=== PATIENT | female | born 1995 | race Caucasian/White ===

== ENCOUNTER 2016-09-15 22:35 | Emergency (ER) | payer BC ==
[~2016-09-15] VITALS: Ht 167.6 cm; Wt 77.7 kg
[~2016-09-15 22:35] MED LIST: BACTRIM DS 8001 TAB PO; PERCOCET 325 MG1 TA2 PO; ULTRAM 50MG TAB50 MG PO; VOLTAREN SR25 MG/TAB PO; ZYRTEC 10MG10 MG PO
[2016-09-15 22:49] VITALS: TEMP 98.4
[2016-09-15] MEDS ORDERED: PRENATAL1 TA7 PO (22:54)
[2016-09-16] MEDS ORDERED: UNISOM25 MG PO (00:06)
[2016-09-16] MEDS ORDERED: VITAMIN B-625 MG PO (00:06)
[2016-09-16] MEDS ORDERED: ZOFRAN8 MG PO (00:07)
[2016-09-16 00:17] VITALS: BP 114/63; PULSE 80
== END 2016-09-16 00:20 | disposition home or self-care (01) ==
LOC: COL.ER 22:35
DX: O21.9 Vomiting of pregnancy, unspecified (principal); Z3A.08 8 weeks gestation of pregnancy

== ENCOUNTER 2017-03-15 13:09 | Outpatient (CLI) | payer BC, MEDICAID ==
[~2017-03-15] VITALS: Ht 167.6 cm; Wt 84.8 kg
[~2017-03-15 13:09] MED LIST changes: +PRENATAL1 TA7 PO; +UNISOM25 MG PO; +VITAMIN B-625 MG PO; +ZOFRAN8 MG PO
[2017-03-15] MEDS ORDERED: MACROBID 1100 MG/CAP PO (16:06)
== END 2017-03-15 14:30 ==
LOC: LDRO 13:09
DX: M54.9 Dorsalgia, unspecified (principal); Z3A.34 34 weeks gestation of pregnancy

== ENCOUNTER 2017-03-15 14:26 | Emergency (ER) | payer BC, MEDICAID ==
[~2017-03-15] VITALS: Ht 167.6 cm; Wt 83.6 kg
[2017-03-15 14:31] VITALS: BP 136/74; TEMP 98.4
[2017-03-15 15:33] VITALS: PULSE 89
[2017-03-15 15:35] LABS: URINE BACTERIA Rare /hpf
[2017-03-15 15:47] LABS: PH 7 (5-8); URINE APPEARANCE Clear; URINE BILIRUBIN Negative (NEGATIVE); URINE BLOOD Negative (NEGATIVE); URINE COLOR Yellow; URINE GLUCOSE Negative (NEGATIVE); URINE KETONE Negative (NEGATIVE); URINE UROBILINOGEN Negative (NEGATIVE)
[2017-03-15] MEDS ORDERED: MACROBID 1100 MG/CAP PO (16:06)
== END 2017-03-15 15:33 | disposition home or self-care (01) ==
LOC: COL.ER 14:26
PROVIDERS: Physician Assistant
DX: O9A.213 Injury, poisoning and certain other consequences of external causes complicating pregnancy, third trimester (principal); S39.012A Strain of muscle, fascia and tendon of lower back, initial encounter; O23.43 Unspecified infection of urinary tract in pregnancy, third trimester; Z3A.36 36 weeks gestation of pregnancy; W51.XXXA Accidental striking against or bumped into by another person, initial encounter

== ENCOUNTER 2017-04-02 20:28 | Inpatient (IN) | payer BC, MEDICAID ==
[~2017-04-02] VITALS: Ht 167.6 cm; Wt 88.6 kg
[~2017-04-02 20:28] MED LIST changes: +MACROBID 1100 MG/CAP PO
[2017-04-02 21:00] VITALS: BP 123/65; PULSE 144; TEMP 100.3
[2017-04-02 21:30] VITALS: BP 132/78; PULSE 133
[2017-04-02 21:55] LABS: MEAN CELL VOLUME 85 fl (80.0-100.0); MEAN CORPUSCULAR HGB CONC 32 g/dl (33.0-37.0); MEAN PLATELET VOLUME 10.9 fl (7.4-10.4); PH 7 (5-8); PLATELET COUNT 141 K/mm3 (130-400); RED BLOOD COUNT 3.99 M/mm3 (4.10-5.30); SQUAMOUS EPITHELIAL 0-2 /hpf; URINE APPEARANCE Clear; URINE BACTERIA None Seen /hpf; URINE BILIRUBIN Negative (NEGATIVE); URINE BLOOD Negative (NEGATIVE); URINE COLOR Yellow; URINE GLUCOSE Negative (NEGATIVE); URINE KETONE Negative (NEGATIVE); URINE RBC 0-2 /hpf; URINE UROBILINOGEN Negative (NEGATIVE); URINE WBC 0-2 /hpf; WHITE BLOOD COUNT 16.1 K/mm3 (4.8-10.8)
[2017-04-02 21:57] LABS: ADD PATHOLOGY DIFF REVIEW NO; HEMATOCRIT 33.8 % (37.0-47.0); HEMOGLOBIN 10.8 g/dl (12.5-16.0); MEAN CORPUSCULAR HEMOGLOBIN 27 pg (27.0-31.0)
[2017-04-02 22:00] VITALS: BP 122/69; PULSE 125
[2017-04-02 22:08] LABS: ALBUMIN 3.6 gm/dL (3.5-5.0); BILIRUBIN,TOTAL 0.8 mg/dL (0.0-1.0); CALCIUM 8.7 mg/dL (8.4-10.2); CREATININE, serum 0.66 mg/dL (0.52-1.25); POTASSIUM 3.6 mmol/L (3.4-5.0); TOTAL PROTEIN 6.7 gm/dL (6.4-8.2)
[2017-04-02 22:14] LABS: BAND 42 % (0-10); METAMYELOCYTE 2 % (0-0); NEUTROPHILS 45 % (42.0-75.2); PLATELET ESTIMATE NORMAL (NORMAL); TOTAL CELLS COUNTED 100
[2017-04-02 22:29] LABS: AMPHETAMINE URINE NEGATIVE; BARBITURATES URINE NEGATIVE; BENZODIAZEPINES URINE NEGATIVE; BUPRENORPHINE URINE NEGATIVE; METHADONE URINE NEGATIVE; OPIATES URINE NEGATIVE; OXYCODONE URINE NEGATIVE; PHENCYCLIDINE URINE NEGATIVE; PROPOXYPHENE URINE NEGATIVE; THC CANNABINOIDS URINE NEGATIVE
[2017-04-02 23:00] VITALS: BP 130/67; PULSE 121
[2017-04-03] VITALS (20 sets, daily range): BP systolic 106–133; BP diastolic 51–82; PULSE 97–127; TEMP 97.5–100.3
[2017-04-04 03:50] VITALS: BP 115/73; PULSE 98; TEMP 97.7
[2017-04-04 07:30] VITALS: BP 111/65; PULSE 81; TEMP 97.3
[2017-04-04 09:16] LABS: MEAN CELL VOLUME 87 fl (80.0-100.0); MEAN CORPUSCULAR HGB CONC 31 g/dl (33.0-37.0); MEAN PLATELET VOLUME 10.2 fl (7.4-10.4); PLATELET COUNT 111 K/mm3 (130-400); RED BLOOD COUNT 3.62 M/mm3 (4.10-5.30); REDCELL DISTRIBUTION WIDTH-CV 14.4 % (11.5-14.5); WHITE BLOOD COUNT 9.7 K/mm3 (4.8-10.8)
[2017-04-04 09:31] LABS: ADD PATHOLOGY DIFF REVIEW NO; HEMATOCRIT 31.5 % (37.0-47.0); HEMOGLOBIN 9.9 g/dl (12.5-16.0); MEAN CORPUSCULAR HEMOGLOBIN 27 pg (27.0-31.0)
[2017-04-04 10:30] VITALS: BP 116/70
[2017-04-04 10:33] LABS: BAND 45 % (0-10); NEUTROPHILS 33 % (42.0-75.2); TOTAL CELLS COUNTED 100
[2017-04-04 16:40] VITALS: BP 118/57; PULSE 83; TEMP 98.1
[2017-04-04 22:00] VITALS: BP 125/81; PULSE 93; TEMP 97.5
[2017-04-05 07:01] VITALS: BP 120/71; PULSE 77; TEMP 98.1
[2017-04-05] MEDS ORDERED: MOTRIN 600600 MG/TAB PO (09:27)
[2017-04-05] MEDS ORDERED: PERCOCET 325 MG1 TA2 PO (09:28)
[2017-04-05 16:00] VITALS: BP 117/63; PULSE 90; TEMP 98.5
[2017-04-05 19:30] VITALS: BP 123/71; PULSE 106; TEMP 98.3
[2017-04-06 09:57] VITALS: BP 125/81; PULSE 98; TEMP 98
== END 2017-04-06 16:15 | disposition home or self-care (01) | DRG 765 ==
LOC: LDRO → LDR 23:40 → OB 23:40 → LDRO 04-21 09:56
PROVIDERS: Obstetrics & Gynecology
PROC: 10D00Z1 Extraction of Products of Conception, Low, Open Approach (ICD-10-PCS; principal; 2017-04-03)
DX: O32.1XX0 Maternal care for breech presentation, not applicable or unspecified (principal); O41.1230 Chorioamnionitis, third trimester, not applicable or unspecified; O99.824 Streptococcus B carrier state complicating childbirth; Z3A.37 37 weeks gestation of pregnancy; Z37.0 Single live birth
CPT/HCPCS: J0690; J1580; J1885; J2270; J2370; J2405; J2590; J3010; J7120

== ENCOUNTER 2017-08-28 14:35 | Emergency (ER) | payer SELFPAY ==
[~2017-08-28] VITALS: Ht 167.6 cm; Wt 81.4 kg
[~2017-08-28 14:35] MED LIST changes: +MOTRIN 600600 MG/TAB PO
[2017-08-28 14:48] VITALS: BP 127/77; TEMP 101.5
[2017-08-28] MEDS ORDERED: SPRINTEC 35 MCG1 TAB PO (14:53)
[2017-08-28 15:46] LABS: INFLUENZA A NEGATIVE; INFLUENZA B NEGATIVE
[2017-08-28 15:57] LABS: STREP SCREEN NEGATIVE
[2017-08-28 17:24] VITALS: PULSE 100
== END 2017-08-28 17:25 | disposition home or self-care (01) ==
LOC: COL.ER 14:35
PROVIDERS: Nurse Practitioner
DX: B34.9 Viral infection, unspecified (principal); G43.909 Migraine, unspecified, not intractable, without status migrainosus; K58.9 Irritable bowel syndrome, unspecified; Z96.22 Myringotomy tube(s) status; Z98.890 Other specified postprocedural states

== ENCOUNTER 2018-01-30 19:39 | Emergency (ER) | payer SELFPAY ==
[~2018-01-30] VITALS: Ht 167.6 cm; Wt 76.8 kg
[~2018-01-30 19:39] MED LIST changes: +SPRINTEC 35 MCG1 TAB PO
[2018-01-30 19:46] VITALS: TEMP 98.3
[2018-01-30 20:11] LABS: COLLECTION METHOD CLEAN CATCH
[2018-01-30 20:26] LABS: MUCOUS Present /lpf; PH 6 (5-8); URINE APPEARANCE Clear; URINE BACTERIA None Seen /hpf; URINE BILIRUBIN Negative (NEGATIVE); URINE BLOOD 3+ (NEGATIVE); URINE COLOR Amber; URINE GLUCOSE Negative (NEGATIVE); URINE KETONE Trace (NEGATIVE); URINE LEUKOCYTE ESTERASE 1+ (NEGATIVE); URINE NITRATE Negative (NEGATIVE); URINE PROTEIN(semi-quant) 1+ (NEGATIVE); URINE RBC >50 /hpf; URINE UROBILINOGEN >=4.0 mg/dL (NEGATIVE)
[2018-01-30 21:30] LABS: BASO % 0.3 % (0.0-2.0); EOS # 0.2 (0.0-0.7); EOS % 3.1 % (0-4.0); GRAN # 4.3 (1.4-6.5); GRAN % 64.2 % (42.2-75.2); HEMATOCRIT 40.1 % (37.0-47.0); HEMOGLOBIN 12.5 g/dl (12.5-16.0); LYMPH # 1.8 (1.2-3.4); LYMPH % 26.2 % (20.0-51.0); MEAN CELL VOLUME 80 fl (80.0-100.0); MEAN CORPUSCULAR HEMOGLOBIN 25 pg (27.0-31.0); MEAN CORPUSCULAR HGB CONC 31 g/dl (33.0-37.0); MEAN PLATELET VOLUME 11.1 fl (7.4-10.4); MONO # 0.4 (0.1-0.6); MONO % 5.8 % (1.7-9.3); PLATELET COUNT 165 K/mm3 (130-400); RED BLOOD COUNT 5.01 M/mm3 (4.10-5.30); REDCELL DISTRIBUTION WIDTH-CV 15.5 % (11.5-14.5)
[2018-01-30 21:31] LABS: COLLECTION METHOD CATHETER
[2018-01-30 21:36] LABS: ALBUMIN 3.9 gm/dL (3.5-5.0); BILIRUBIN,TOTAL 0.5 mg/dL (0.0-1.0); CALCIUM 8.9 mg/dL (8.4-10.2); CREATININE, serum 0.96 mg/dL (0.52-1.25); POTASSIUM 3.5 mmol/L (3.4-5.0); TOTAL PROTEIN 6.7 gm/dL (6.4-8.2)
[2018-01-30 21:38] LABS: MUCOUS Present /lpf; PH 7 (5-8); SQUAMOUS EPITHELIAL 0-2 /hpf; URINE APPEARANCE Clear; URINE BACTERIA None Seen /hpf; URINE BILIRUBIN Negative (NEGATIVE); URINE BLOOD Negative (NEGATIVE); URINE COLOR Yellow; URINE GLUCOSE Negative (NEGATIVE); URINE KETONE Negative (NEGATIVE); URINE LEUKOCYTE ESTERASE Negative (NEGATIVE); URINE NITRATE Negative (NEGATIVE); URINE PROTEIN(semi-quant) Negative (NEGATIVE); URINE UROBILINOGEN >=4.0 mg/dL (NEGATIVE)
[2018-01-30] MEDS ORDERED: NORCO 325 MG-51 TAB PO (22:13)
[2018-01-30 22:57] VITALS: BP 116/73; PULSE 82
== END 2018-01-30 22:57 | disposition home or self-care (01) ==
LOC: COL.ER 19:39
PROVIDERS: Nurse Practitioner
DX: M54.5 Low back pain (principal); G43.909 Migraine, unspecified, not intractable, without status migrainosus; Z98.890 Other specified postprocedural states; Z88.0 Allergy status to penicillin
CPT/HCPCS: J1885; J2405; J7030

== ENCOUNTER 2018-02-03 07:32 | Emergency (ER) | payer SELFPAY ==
[~2018-02-03] VITALS: Ht 167.6 cm; Wt 76.4 kg
[~2018-02-03 07:32] MED LIST changes: +NORCO 325 MG-51 TAB PO
[2018-02-03 07:36] VITALS: BP 121/69; TEMP 98.7
[2018-02-03] MEDS ORDERED: MOTRIN 200200 MG/TAB PO (07:46)
[2018-02-03 08:05] LABS: COLLECTION METHOD CLEAN CATCH
[2018-02-03 08:12] LABS: PH 6 (5-8); SQUAMOUS EPITHELIAL 0-2 /hpf; URINE APPEARANCE Clear; URINE BACTERIA None Seen /hpf; URINE BILIRUBIN Negative (NEGATIVE); URINE BLOOD Negative (NEGATIVE); URINE COLOR Yellow; URINE GLUCOSE Negative (NEGATIVE); URINE KETONE Negative (NEGATIVE); URINE LEUKOCYTE ESTERASE Negative (NEGATIVE); URINE NITRATE Negative (NEGATIVE); URINE PROTEIN(semi-quant) Negative (NEGATIVE); URINE RBC 0-2 /hpf; URINE UROBILINOGEN Negative (NEGATIVE)
[2018-02-03] MEDS ORDERED: MEDROL 4MG DOSPA4 MG PO (08:23)
[2018-02-03 08:39] VITALS: PULSE 84
== END 2018-02-03 08:37 | disposition home or self-care (01) ==
LOC: COL.ER 07:32
PROVIDERS: Physician Assistant
DX: M54.32 Sciatica, left side (principal); K58.9 Irritable bowel syndrome, unspecified; G43.909 Migraine, unspecified, not intractable, without status migrainosus; F32.9 Major depressive disorder, single episode, unspecified; Z88.0 Allergy status to penicillin; Z98.890 Other specified postprocedural states

== ENCOUNTER → 2018-06-16 | Outpatient (CLI) | payer SELFPAY ==
[~2018-06-16] MED LIST changes: +MEDROL 4MG DOSPA4 MG PO; +MOTRIN 200200 MG/TAB PO
== END ==
LOC: COL.LAB 17:06
DX: R19.5 Other fecal abnormalities (principal); R63.4 Abnormal weight loss

== ENCOUNTER 2018-06-30 19:37 | Emergency (ER) | payer OTHER ==
[~2018-06-30] VITALS: Ht 167.6 cm; Wt 70.5 kg
[2018-06-30 19:41] VITALS: BP 136/72; PULSE 93; TEMP 98.8
[2018-06-30] MEDS ORDERED: AMITRIPTYLINE H10 M1 PO (20:38)
== END 2018-06-30 21:49 | disposition home or self-care (01) ==
LOC: COL.ER 19:37
DX: S86.912A Strain of unspecified muscle(s) and tendon(s) at lower leg level, left leg, initial encounter (principal); G43.909 Migraine, unspecified, not intractable, without status migrainosus; F32.9 Major depressive disorder, single episode, unspecified; K58.9 Irritable bowel syndrome, unspecified; X50.0XXA Overexertion from strenuous movement or load, initial encounter; Y92.59 Other trade areas as the place of occurrence of the external cause
CPT/HCPCS: L1846

== ENCOUNTER 2018-08-11 07:40 | Emergency (ER) | payer SELFPAY ==
[~2018-08-11] VITALS: Ht 167.6 cm; Wt 70.5 kg
[~2018-08-11 07:40] MED LIST changes: +AMITRIPTYLINE H10 M1 PO
[2018-08-11 07:43] VITALS: BP 122/73; PULSE 97; TEMP 98.5
[2018-08-11] MEDS ORDERED: ILOTYCIN5 MG/GM OP (08:23)
== END 2018-08-11 08:24 | disposition home or self-care (01) ==
LOC: COL.ER 07:40
DX: S05.02XA Injury of conjunctiva and corneal abrasion without foreign body, left eye, initial encounter (principal); W22.8XXA Striking against or struck by other objects, initial encounter

== ENCOUNTER 2018-08-19 15:45 | Outpatient (RCR) | payer BC ==
[~2018-08-19 15:45] MED LIST changes: +ILOTYCIN5 MG/GM OP
== END 2018-11-09 | disposition home or self-care (01) ==
LOC: WSOH
DX: M25.562 Pain in left knee (principal)

== ENCOUNTER → 2018-10-13 | Outpatient (CLI) | payer BC | LOC: COL.CARD 13:00 | DX: R51 Headache (principal); R00.0 Tachycardia, unspecified; I95.1 Orthostatic hypotension ==

== ENCOUNTER → 2018-10-24 | Outpatient (CLI) | payer BC | LOC: COL.RAD 12:10 | DX: J34.89 Other specified disorders of nose and nasal sinuses (principal) | CPT/HCPCS: A9585 ==

== ENCOUNTER → 2018-11-01 | Outpatient (CLI) | payer BC | LOC: COL.VAS 11:12 | DX: I95.1 Orthostatic hypotension (principal); I31.3 Pericardial effusion (noninflammatory); R00.0 Tachycardia, unspecified; R51 Headache ==